=== PATIENT | male | born 1985 | race Hispanic/Latino ===

== ENCOUNTER 2021-07-02 19:14 | Emergency (ER) | payer SELFPAY ==
--- OUTSIDE RECORDS SUMMARY | 2021-07-02 19:16 | XMS REPORT | Continuity of Care Document ---
:1985 Author Organization [facility] t Address [address] [place] [address] Care Team Providers Name Role Phone DARREN Attending Clinician Unavailable KNOW Admitting Clinician Unavailable Payers Payer Name Policy Type Policy Number Effective Date Expiration Date S ource Problems This patient has no known problems. Allergies, Adverse Reactions, Alerts Allergy Allergy Status Severity Reaction(s) Onset Inactive Treating Comm ents Source Name Type Date Date Clinician No Known DA Active U [facility] Allergie 08-09 [facility] Medications This patient has no known medications. Procedures This patient has no known procedures. Encounters Start End Encounter Admission Attending Care Care Encounter Source Date/Time Date/Time Type Type Clinicians Facility Department ID 2019-07-15 [id number] 03:32:00 [id number] [facility] 2021-01-17 2021-01-17 [id number] [address] 00:00:00 00:00:00 ARELI Melgoza Method i st Results Test Description Test Time Test Comments Results Result Sour e Comments - CT C-SPINE W/O 2019-07-15 Name: ABIEL NICHOLSON CONT 04:19:00 Jostin Skaggs FSED : 1985 Age/S: 33 / M [address] Unit #: [id number] Loc: [place] [address] Phys: Heriberto Dickens MD Acct: [id number] Dis Date: Status: REG ER PHONE #: Exam Date: 07/15/2019 0408 FAX #: Reason: head trauma pain lac occipital EXAMS: CPT CODE: [id number] CT C-SPINE W/O CONT 93943 DICTATION LOCATION: H48 HISTORY: Male, 33 years of age with head trauma pain, occipital laceration EXAM: CT SCAN OF THE CERVICAL SPINE WITHOUT IV CONTRAST COMPARISON: None TECHNIQUE: Helical axial images were obtained without IV contrast. Axial, sagittal, and coronal reconstructions were performed. One or more of the following dose reduction techniques were used: Automated exposure control; adjustment of the mA and/or kV according to the patient size; and/or use of iterative reconstruction technique. FINDINGS: There is no acute fracture, posttraumatic subluxation or prevertebral soft tissue swelling. No significant central canal or foraminal stenosis. No focal disc herniations are identified. IMPRESSION: No acute fracture or subluxation in the cervical spine. at 0419 Reported and signed by: GER MARTINEZ M.D. CC: Heriberto Dickens MD Technologist:ALEC JACOBO RT (R) CTDI: 8.36 DLP: 194.18 Trnscb Date/Time: 07/15/2019 (0419) [email or web address] Orig Print D/T: S: 07/15/2019 (0422) PAGE 1 Signed Report - CT HEAD/BRAIN 2019-07-15 Name: ABIEL NICHOLSON W/O CONT 04:16:00 [place] FSED : 1985 Age/S: 33 / M [address] Unit #: [id number] Loc: [place] [address] Phys: Heriberto Dickens MD Acct: [id number] Dis Date: Status: REG ER PHONE #: Exam Date: 07/15/2019 0404 FAX #: Reason: head trauma pain lac occipital EXAMS: CPT CODE: [id number] CT HEAD/BRAIN W/O CONT [id number] DICTATION LOCATION: H48 HISTORY: Male, 33 years of age with head trauma, occipital laceration EXAM: CT BRAIN WITHOUT CONTRAST COMPARISON: 08/09/2014 TECHNIQUE: Helical axial images were obtained through the brain without IV contrast. Coronal and sagittal reformats were performed. One or more of the following dose reduction techniques were used: Automated exposure control; adjustment of the mA and/or kV according to the patient size; and/or use of iterative reconstruction technique. FINDINGS: Soft tissue swelling seen in the right parietal scalp. There is no acute intra-axial or extra-axial hemorrhage, mass, mass effect or midline shift. No acute loss of moe/white junctions. No hydrocephalus. There is no acute calvarial fracture. The sinuses and mastoids are clear. IMPRESSION: No acute calvarial fracture, intracranial hemorrhage, infarct, or mass. at 0416 Reported and signed by: GER MARTINEZ M.D. CC: Heriberto Dickens MD Technologist:ALEC JACOBO RT (R) CTDI: 35.51 DLP: 588.54 Trnscb Date/Time: 07/15/2019 (0416) [email or web address] Orig Print D/T: S: 07/15/2019 (0419) PAGE 1 Signed Report
[2021-07-02] MEDS ORDERED: LIDOCAINE 1% MPF 30 ML VIAL ONE (19:59)
--- NOTE | 2021-07-02 20:57 | ER ---
Nurse's Notes [facility] Name: Giles Underwood Age: 35 yrs Sex: Male : 1985 Arrival Date: 07/02/2021 Time: 19:17 Bed 25 Private MD: Diagnosis: Laceration without foreign body of right hand, initial encounter Presentation: 07/02 19:30 Chief complaint: Patient states: I was cooking dinner tonight with a [employer] kitchen ld1 knife. I dropped it on my right hand. Coronavirus screen: At this time, the client does not indicate any symptoms associated with coronavirus-19. Ebola Screen: No symptoms or risks identified at this time. Initial Sepsis Screen: Does the patient meet any 2 criteria? No. Patient's initial sepsis screen is negative. Does the patient have a suspected source of infection? No. Patient's initial sepsis screen is negative. Risk Assessment: Do you want to hurt yourself or someone else? Patient reports no desire to harm self or others. Onset of symptoms was July 02, 2021. 19:30 Method Of Arrival: Ambulatory ld1 19:30 Acuity: BRENDA 3 ld1 Triage Assessment: 19:31 General: Appears in no apparent distress. comfortable, Behavior is calm, cooperative, ld1 appropriate for age. Pain: Complains of pain in dorsal aspect of proximal phalanx of right thumb and Right first web space Pain does not radiate. Pain currently is 9 out of 10 on a pain scale. Quality of pain is described as stabbing, throbbing, Pain began suddenly, Is continuous. EENT: No signs and/or symptoms were reported regarding the EENT system. Musculoskeletal: No signs and/or symptoms reported regarding the musculoskeletal system. Injury Description: Laceration sustained to right hand. Historical: - Allergies: 19:31 No Known Allergies; ld1 - Home Meds: 19:31 Metoprolol Tartrate Oral [Active]; ld1 - PMHx: 19:31 Hypertensive disorder; ld1 - PSHx: 19:31 None; ld1 - Immunization history:: Adult Immunizations up to date, Client reports receiving the 2nd dose of the Covid vaccine, Last tetanus immunization: up to date. - Social history:: Smoking status: Patient reports the use of cigarette tobacco products, smokes one-half pack cigarettes per day, Patient/guardian denies using alcohol. - Family history:: not pertinent. - Hospitalizations: : No recent hospitalization is reported. Screenin:40 Abuse screen: none. Nutritional screening: No deficits noted. Tuberculosis screening: iw No symptoms or risk factors identified. Fall Risk None identified. Assessment: 19:40 Reassessment: The provider is at the bedside. The wound was examined. The patient's iw tetanus is up to date.. Vital Signs: 19:30 BP 175 / 122; Pulse 90; Resp 18; Temp 98.6(TE); Pulse Ox 97% on R/A; Weight 90.72 kg; ld1 Height 5 ft. 9 in. (175.26 cm); Pain 9/10; 19:45 BP 169 / 118; Pulse 91; Resp 18; Temp 98.4; Pulse Ox 100% 0 lpm ; Weight 95.25 kg; iw Height 5 ft. 6 in. (167.64 cm); Pain 3/10; 21:09 BP 110 / 80; Pulse 90; Resp 19; Pulse Ox 100% 0 lpm ; sv1 19:45 Body Mass Index 33.89 (95.25 kg, 167.64 cm) iw ED Course: 19:17 Patient arrived in ED. ja2 19:31 Triage completed. ld1 19:34 Jad Dykes MD is Attending Physician. rn 19:35 Janay Wood RN is Primary Nurse. iw 19:40 Patient has correct armband on for positive identification. Bed in low position. Call iw light in reach. Side rails up X 1. 19:45 Arm band placed on left wrist. iw 21:09 No provider procedures requiring assistance completed. Patient did not have IV access sv1 during this emergency room visit. Administered Medications: 20:02 Drug: Lidocaine (1 %) 1 vials Volume: 20 ml; Route: Infiltration; iw Outcome: 20:56 Discharge ordered by . rn 21:09 Discharged to home ambulatory, with family. sv1 21:09 Condition: good 21:09 Discharge instructions given to patient, family. 21:11 Patient left the ED. sv1 Signatures: Janay Wood, ANUSHA TAVARES iw Jad Dykes MD MD rn Dibbern, Lauren, RN RN ld1 Stella Sequeira [facility] Karthik Ascencio RN RN sv1
--- NOTE | 2021-07-02 20:57 | EDPHYS ---
Physician Documentation [facility] Name: Giles Underwood Age: 35 yrs Sex: Male : 1985 Arrival Date: 07/02/2021 Time: 19:17 Bed 25 Private MD: ED Physician Jad Dykes HPI: 07/02 20:37 This 35 yrs old Male presents to ER via Ambulatory with complaints of Hand rn laceration. 20:37 The patient or guardian reports a laceration, clean, 3 cm(s), simple. The complaints rn affect the right hand diffusely. Context: The problem was sustained at home, resulted from Knife. Onset: The symptoms/episode began/occurred just prior to arrival. Modifying factors: The symptoms are alleviated by nothing, the symptoms are aggravated by nothing. Severity of symptoms: At their worst the symptoms were mild, in the emergency department the symptoms are unchanged. The patient has not experienced similar symptoms in the past. The patient has not recently seen a physician. Patient reports doing dishes, dropped a sharp knife on his right hand, bleeding, EMS went out and wrapped the laceration and told him that he did not need transportation by EMS. Patient came on his own. Patient did take an aspirin earlier. No other anticoagulation. Reports wound is oozing.. Historical: - Allergies: 19:31 No Known Allergies; ld1 - Home Meds: 19:31 Metoprolol Tartrate Oral [Active]; ld1 - PMHx: 19:31 Hypertensive disorder; ld1 - PSHx: 19:31 None; ld1 - Immunization history:: Adult Immunizations up to date, Client reports receiving the 2nd dose of the Covid vaccine, Last tetanus immunization: up to date. - Social history:: Smoking status: Patient reports the use of cigarette tobacco products, smokes one-half pack cigarettes per day, Patient/guardian denies using alcohol. - Family history:: not pertinent. - Hospitalizations: : No recent hospitalization is reported. ROS: 20:37 Constitutional: Negative for fever, chills, and weight loss, MS/Extremity: Positive for rn laceration to the right hand with bleeding Skin: Positive for laceration Exam: 20:37 Constitutional: This is a well developed, well nourished patient who is awake, alert, rn appears anxious Skin: Warm, dry, no cyanosis MS/ Extremity: Pulses equal, no cyanosis. Neurovascular intact. Full, normal range of motion. 3 cm laceration to the dorsum of the right hand of the proximal first webspace closer to the base of the thumb. Central portion of the wound with small arteriolar bleeding. No foreign body. Vital Signs: 19:30 BP 175 / 122; Pulse 90; Resp 18; Temp 98.6(TE); Pulse Ox 97% on R/A; Weight 90.72 kg; ld1 Height 5 ft. 9 in. (175.26 cm); Pain 9/10; 19:45 BP 169 / 118; Pulse 91; Resp 18; Temp 98.4; Pulse Ox 100% 0 lpm ; Weight 95.25 kg; iw Height 5 ft. 6 in. (167.64 cm); Pain 3/10; 21:09 BP 110 / 80; Pulse 90; Resp 19; Pulse Ox 100% 0 lpm ; sv1 19:45 Body Mass Index 33.89 (95.25 kg, 167.64 cm) iw Laceration: 20:40 Wound Repair of 3cm ( 1.2in ) subcutaneous laceration to Right first web space. Distal rn neuro/vascular/tendon intact. Anesthesia: Wound infiltrated with 3 mls of 1% lidocaine. Wound prep: Moderate cleansing by me, Wound irrigation by me, Wound explored moderately. Subcutaneous tissue closed with 2 2-0 Chromic gut using [id number] sutures for arteriolar ligation. Skin closed with 3 4-0 Prolene using simple sutures. Dressed with 4x4's, Kerlix. Patient tolerated well. MDM: 19:34 Patient medically screened. rn 20:40 Differential diagnosis: Hand laceration, arteriolar bleeding. Data reviewed: vital rn signs, nurses notes, and as a result, I will discharge patient. ED course: Arteriolar bleeding stopped with 2 [id number] sutures. Tolerated well. Icing wound and observing patient. 20:54 Counseling: I had a detailed discussion with the patient and/or guardian regarding: the rn historical points, exam findings, and any diagnostic results supporting the discharge/admit diagnosis, the need for outpatient follow up, to return to the emergency department if symptoms worsen or persist or if there are any questions or concerns that arise at home. Response to treatment: the patient's symptoms have markedly improved after treatment, and as a result, I will discharge patient. ED course: Patient reports needs to leave by 9, continues to take ice off of wound despite us telling him to remain. Patient does not want to put pressure on the wound. Insists on leaving. Will discharge home and told to return in 14 days for suture removal. Explained to him the need for pressure and ice for tonight to minimize bleeding and given return precautions.. 07/02 19:40 Order name: Suture Tray at Bedside; Complete Time: 20: rn 07/02 19:40 Order name: Wound Care; Complete Time: 20: rn Administered Medications: 20: Drug: Lidocaine (1 %) 1 vials Volume: 20 ml; Route: Infiltration; iw Disposition Summary: 07/02/21 20:56 Discharge Ordered Location: Home rn Problem: new rn Symptoms: have improved rn Condition: Stable rn Diagnosis - Laceration without foreign body of right hand, initial encounter rn Followup: rn - With: Emergency Department - When: 14 days - Reason: Recheck today's complaints, Staple/Suture removal, Re-evaluation by your physician Discharge Instructions: - Discharge Summary Sheet rn - Laceration Care, Adult 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
[2021-07-02 21:21] VITALS: TEMP 98.4; O2SAT 100
[2021-07-02 21:23] VITALS: BP 110/80
== END 2021-07-02 21:11 | disposition home or self-care (01) ==
LOC: ER 19:14
PROC: 0JQJ0ZZ Repair Right Hand Subcutaneous Tissue and Fascia, Open Approach (ICD-10-PCS; principal; 2021-07-02)
DX: S61.411A Laceration without foreign body of right hand, initial encounter (principal); W26.0XXA Contact with knife, initial encounter; Y92.009 Unspecified place in unspecified non-institutional (private) residence as the place of occurrence of the external cause; I10 Essential (primary) hypertension; F17.210 Nicotine dependence, cigarettes, uncomplicated
CPT/HCPCS: 99283

== ENCOUNTER 2021-07-16 14:01 | Emergency (ER) | payer SELFPAY ==
--- OUTSIDE RECORDS SUMMARY | 2021-07-16 14:03 | XMS REPORT | Continuity of Care Document ---
:1985 Author Organization [facility] t Address [address] [place] [address] Care Team Providers Name Role Phone DARREN Attending Clinician Unavailable KNOW Admitting Clinician Unavailable Payers Payer Name Policy Type Policy Number Effective Date Expiration Date S ource Problems This patient has no known problems. Allergies, Adverse Reactions, Alerts Allergy Allergy Status Severity Reaction(s) Onset Inactive Treating Comm ents Source Name Type Date Date Clinician No Known DA Active U [facility] Allergie 08-09 [facility] 00:00: [facility] Medications This patient has no known medications. Procedures This patient has no known procedures. Encounters Start End Encounter Admission Attending Care Care Encounter Source Date/Time Date/Time Type Type Clinicians Facility Department ID 2019-07-15 Inpatient [facility] ER [id number] [facility] 03:32:00 [id number] [facility] 2021-01-17 2021-01-17 [facility] [id number] [address] [place] 00:00:00 00:00:00 ARELI Melgoza Method i st Results Test Description Test Time Test Comments Results Result [facility] e Comments - CT C-SPINE W/O 2019-07-15 Name: ABIEL NICHOLSON CONT 04:19:00 Jostin Skaggs FSED : 1985 Age/S: 33 / M [address] Unit #: [id number] Loc: [place] [address] Phys: Heriberto Dickens MD Acct: [id number] Dis Date: Status: REG ER PHONE #: Exam Date: 07/15/2019 0408 FAX #: Reason: head trauma pain lac occipital EXAMS: CPT CODE: [id number] CT C-SPINE W/O CONT 72657 DICTATION LOCATION: H48 HISTORY: Male, 33 years [...] 8.36 DLP: 194.18 Trnscb Date/Time: 07/15/2019 (0419) [email or web address] Orig Print D/T: S: 07/15/2019 (0422) PAGE 1 Signed Report - CT HEAD/BRAIN 2019-07-15 Name: ABIEL NICHOLSON W/O CONT 04:16:00 [place] FSED : 1985 Age/S: 33 / M [address] Unit #: [id number] Loc: [place] [address] Phys: Heriberto Dickens MD Acct: [id number] Dis Date: Status: REG ER PHONE #: Exam Date: 07/15/2019 0407 FAX #: Reason: head trauma pain lac occipital EXAMS: CPT CODE: [id number] CT HEAD/BRAIN W/O CONT 66761 DICTATION LOCATION: H48 HISTORY: Male, 33 years [...] JACOBO RT (R) CTDI: 35.51 DLP: 588.54 Trnilb Date/Time: 07/15/2019 (0416) t.CLW Orig Print D/T: S: 07/15/2019 (0419) PAGE 1 Signed Report
--- NOTE | 2021-07-16 14:26 | EDPHYS ---
Physician Documentation [facility] Name: Giles Moses Jr Age: 35 yrs Sex: Male : 1985 Arrival Date: 07/16/2021 Time: 14:03 Bed DIS1 Private MD: ED Physician Jad Dykes HPI: 07/16 14:24 This 35 yrs old Male presents to ER via Unassigned with complaints of Suture pm1 Removal. 14:24 The patient has sutures on the lateral aspect of right hand. Previous treatment: the pm1 care was rendered at [facility], Treatment type: The patient's original treatment included sutures. Sutures/marta progress: The patient has no c/o's. The wound is well-healing with no redness, swelling, discharge, or dehiscence reported. The patient has not experienced similar symptoms in the past. The patient has not recently seen a physician. Historical: - PMHx: 14:31 Hypertensive disorder; ss - Immunization history:: Adult Immunizations up to date. - Social history:: Smoking status: Patient denies any tobacco usage or history of. ROS: 14:24 Constitutional: Negative for fever, chills, and weight loss, Cardiovascular: Negative pm1 for chest pain, palpitations, and edema, Respiratory: Negative for shortness of breath, cough, wheezing, and pleuritic chest pain, MS/Extremity: Negative for injury and deformity, Skin: Negative for injury, rash, and discoloration, Neuro: Negative for headache, weakness, numbness, tingling, and seizure. 14:24 All other systems are negative. Exam: 14:24 Constitutional: This is a well developed, well nourished patient who is awake, alert, pm1 and in no acute distress. Head/Face: Normocephalic, atraumatic. 14:24 Cardiovascular: Exam negative for acute changes, Rate: normal, Rhythm: regular, Pulses: no pulse deficits are appreciated. 14:24 Respiratory: Exam negative for acute changes, respiratory distress, shortness of breath. 14:24 Skin: Wound recheck: Suture laceration closure: the wound is healing well, the edges are well approximated, no evidence of dehiscence, no drainage, no erythema, no swelling. 14:24 Neuro: Exam negative for acute changes, Orientation: is normal, Mentation: is normal, Motor: moves all fours, Gait: is steady, at a normal pace, without difficulty. Vital Signs: 14:29 BP 123 / 71; Pulse 80; Resp 16; Temp 98.4(TE); Pulse Ox 100% on R/A; Pain 0/10; ss MDM: 14:25 Patient medically screened. pm1 14:27 Counseling: I had a detailed discussion with the patient and/or guardian regarding: the pm1 historical points, exam findings, and any diagnostic results supporting the discharge/admit diagnosis, the need for outpatient follow up, to return to the emergency department if symptoms worsen or persist or if there are any questions or concerns that arise at home. 14:31 Data reviewed: vital signs. Data interpreted: Pulse oximetry: on room air is 100 %. pm1 Interpretation: normal. Administered Medications: No medications were administered Disposition: 15:37 Co-signature as Attending Physician, Jad Dykes MD I agree with the assessment and rn plan of care. Disposition Summary: 07/16/21 14:25 Discharge Ordered Location: Home pm1 Problem: new pm1 Symptoms: have improved pm1 Condition: Stable pm1 Diagnosis - Encounter for removal of sutures pm1 Followup: pm1 - With: Emergency Department - When: As needed - Reason: Worsening of condition Followup: pm1 - With: Private Physician - When: As needed - Reason: Recheck today's complaints, Continuance of care, Re-evaluation by your physician Discharge Instructions: - Discharge Summary Sheet pm1 - Suture Removal, Care After pm1 Forms: - Medication Reconciliation Form pm1 - Thank You Letter pm1 - Antibiotic Education pm1 - Prescription Opioid Use pm1 Signatures: Jad Dykes MD MD rn Smirch, Shelby, RN RN Vernon Li, TU CARDIAC NURSE PRACTITIONER pm1
--- NOTE | 2021-07-16 14:32 | ER ---
Nurse's Notes [facility] Name: Giles Moses Jr Age: 35 yrs Sex: Male : 1985 Arrival Date: 07/16/2021 Time: 14:03 Bed DIS1 Private MD: Diagnosis: Encounter for removal of sutures Presentation: 07/16 14:29 Chief complaint: Patient states: Here to have sutures removed from R hand. Placed ss approximately 2 weeks ago. Coronavirus screen: Client denies travel out of the [place] in the last 14 days. Ebola Screen: Patient denies exposure to infectious person. Patient denies travel to an Ebola-affected area in the 21 days before illness onset. Initial Sepsis Screen: Does the patient meet any 2 criteria? No. Patient's initial sepsis screen is negative. Does the patient have a suspected source of infection? No. Patient's initial sepsis screen is negative. Risk Assessment: Do you want to hurt yourself or someone else? Patient reports no desire to harm self or others. Onset of symptoms is unknown. 14:29 Method Of Arrival: Ambulatory ss 14:29 Acuity: BRENDA 5 ss Historical: - PMHx: 14:31 Hypertensive disorder; ss - Immunization history:: Adult Immunizations up to date. - Social history:: Smoking status: Patient denies any tobacco usage or history of. Screenin:31 Abuse screen: Denies threats or abuse. Denies injuries from another. Nutritional ss screening: No deficits noted. Tuberculosis screening: Never had TB. Fall Risk None identified. Assessment: 14:31 General: Appears in no apparent distress. comfortable, Behavior is calm, cooperative. ss Pain: Denies pain. Vital Signs: 14:29 BP 123 / 71; Pulse 80; Resp 16; Temp 98.4(TE); Pulse Ox 100% on R/A; Pain 0/10; ss ED Course: 14:03 Patient arrived in ED. ds1 14:21 Vernon Rubi NP is PHCP. pm1 14:21 Jad Dykes MD is Attending Physician. pm1 14:29 India Camargo RN is Primary Nurse. ss 14:30 Triage completed. ss 14:31 Arm band placed on right wrist. ss 14:31 Patient has correct armband on for positive identification. Bed in low position. Call ss light in reach. 14:31 No provider procedures requiring assistance completed. Patient did not have IV access ss during this emergency room visit. Administered Medications: No medications were administered Outcome: 14:25 Discharge ordered by MD. pm1 14:31 Discharged to home ambulatory. ss 14:31 Condition: good 14:31 Discharge instructions given to patient, Instructed on discharge instructions, follow up and referral plans. Demonstrated understanding of instructions, follow-up care. 14:32 Patient left the ED. Signatures: Nicole England ds1 India Camargo RN RN Vernon Rubi, TU SUPERVISOR POWDER AND [employer]ER CANNING pm1
[2021-07-16 14:49] VITALS: BP 123/71; TEMP 98.4; O2SAT 100
== END 2021-07-16 14:32 | disposition home or self-care (01) ==
LOC: ER 14:01
DX: Z48.02 Encounter for removal of sutures (principal)
CPT/HCPCS: 99281

== ENCOUNTER 2022-03-13 03:48 | Emergency (ER) | payer SELFPAY ==
--- OUTSIDE RECORDS SUMMARY | 2022-03-13 04:06 | XMS REPORT | Continuity of Care Document ---
:1985 Author Organization [facility] t Address [address] [place] [address] Care Team Providers Name Role Phone Asked, No Pcp Primary Care Physician Unavailable ARELI BANKS Attending Clinician Unavailable KNOW, DOES_NOT Admitting Clinician Unavailable Payers Payer Name Policy Type Policy Number Effective Date Expiration Date S ource Problems This patient has no known problems. Allergies, Adverse Reactions, Alerts Allergy Allergy Status Severity Reaction(s) Onset Inactive Treating Comm ents Source Name Type Date Date Clinician No Known DA Active U [facility] Allergie 08-09 [facility] Social History Social Habit Start Date Stop Date Quantity Comments Source History of Smokes tobacco [facility] tobacco use daily Hospital Tobacco use and 2021-01-17 2021-01-17 Smokeless tobacco [facility] exposure 00:00:00 00:00:00 non-user Hospital Alcohol intake 2021-01-17 2021-01-17 Current drinker [facility] 00:00:00 00:00:00 of alcohol Hospital (finding) Sex Assigned At [birth year] [facility] 00:00:00 00:00:00 Hospital Smoking Status Start Date Stop Date Source Smokes tobacco daily 2021-01-17 00:00:00 [facility] Medications Ordered Filled Start Stop Current Ordering Indication Dosage Frequency Signature Comments Components Source Medication Medication Date Date Medication? Clinician (SIG) Name Name omeprazole Yes 20mg QD Take 1 Metho di (PriLOSEC) 01-[address] 20 MG 00:00: (20 mg Hospita capsule 00 total) by l mouth daily before breakfast. Procedures This patient has no known procedures. Plan of Care Planned Activity Planned Date Details Comments Source Future Scheduled 2022-03-01 COVID-19 VACCINE (#1) [facility] Test 10:36:38 [code = COVID-19 VACCINE (#1)] Future Scheduled 2022-03-01 Pneumococcal Vaccine: [facility] Test 10:36:38 Pediatrics (0 to 5 Years) and At-Risk Patients (6 to 64 Years) (1 - PCV) [code = Pneumococcal Vaccine: Pediatrics (0 to 5 Years) and At-Risk Patients (6 to 64 Years) (1 - PCV)] Future Scheduled 2022-03-01 Hepatitis C screening [facility] Test 10:36:38 (procedure) [code = [id number]] Future Scheduled 2022-03-01 INFLUENZA VACCINE [facility] Test 10:36:38 [code = INFLUENZA VACCINE] Future Scheduled 2022-03-01 HEPATITIS B VACCINES [facility] Test 10:36:38 (1 of 3 - 3-dose series) [code = HEPATITIS B VACCINES (1 of 3 - 3-dose series)] Encounters Start End Encounter Admission Attending Care Care Encounter Source Date/Time Date/Time Type Type Clinicians Facility Department ID 2019-07-15 Inpatient [facility] ER [id number] [facility] 03:32:00 [id number] [facility] 2021-01-17 2021-01-17 Emergency ANADARKO, [facility] 374 [id number] [address] [place] 00:00:00 00:00:00 ARELI Melgoza Method i st Results Test Description Test Time Test Comments Results Result [facility] e Comments - CT C-SPINE W/O 2019-07-15 Name: ABIEL NICHOLSON CONT 04:19:00 [place] FSED : 1985 Age/S: 33 / M [address] Unit #: [id number] Loc: [place] [address] Phys: Heriberto Dickens MD Acct: [id number] Dis Date: Status: REG ER PHONE #: Exam Date: 07/15/2019 0402 FAX #: Reason: head trauma pain lac occipital EXAMS: CPT CODE: [id number] CT C-SPINE W/O CONT 11797 DICTATION LOCATION: H48 HISTORY: Male, 33 years [...] 2019-07-15 Name: ABIEL NICHOLSON W/O CONT 04:16:00 [place] FSED : 1985 Age/S: 33 / M [address] Unit #: [id number] Loc: [place] [address] Phys: Heriberto Dickens MD Acct: [id number] Dis Date: Status: REG ER PHONE #: Exam Date: 07/15/2019 9573 FAX #: Reason: head trauma pain lac occipital EXAMS: CPT CODE: [id number] CT HEAD/BRAIN W/O CONT 37943 DICTATION LOCATION: H48 HISTORY: Male, 33 years [...] (0416) tKERI Orig Print D/T: S: 07/15/2019 (0414) PAGE 1 Signed Report
[2022-03-13 04:35] LABS: Urine Blood Trace-lysed (Negative); Urine Glucose Negative (Negative); Urine Protein Negative (Negative); Urine Specific Gravity >=1.030 (1.005-1.030); Urine pH 5.5 (5.0-7.0)
[2022-03-13 04:35] LABS: Absolute Lymphocytes (CBC) 2.1 K/uL (0.7-4.9); Hematocrit 42.2 % (39.6-49.0); Lymphocytes % 14.7 % (15.3-44.8); MCV 81.5 fL (80-100); MPV 8.4 fL (7.6-11.3); RBC Red Blood Cell Count 5.18 M/uL (4.33-5.43)
[2022-03-13 04:53] LABS: Albumin 3.8 g/dL (3.4-5.0); Bilirubin Total 0.9 mg/dL (0.2-1.0); Potassium 3.7 mmol/L (3.5-5.1); Protein, Total 7.9 g/dL (6.4-8.2)
[2022-03-13] MEDS ORDERED: Ciprofloxacin 200mg IV 200 MG/100 ML IV.SOLN. IV ONE (05:16)
[2022-03-13] MEDS ORDERED: MORPHINE 4 MG/ML SYR ONE (05:16)
[2022-03-13] MEDS ORDERED: NA CHLORIDE 0.9% 1,000 ML ONE (05:16)
[2022-03-13] MEDS ORDERED: CEFTRIAXONE 2000 MG/VIAL ONE (05:16)
[2022-03-13] MEDS ORDERED: METRONIDAZOLE 500mg IVPB 500 MG/100 ML BAG IV ONE (05:16)
[2022-03-13] MEDS ORDERED: NA CHLORIDE 0.9% 50 ML ONE (05:16)
[2022-03-13] MEDS ORDERED: ONDANSETRON 4 MG/2 ML VIAL ONE (05:16)
--- NOTE | 2022-03-13 07:10 | ER ---
Nurse's Notes [facility] Name: Giles Moses Jr Age: 36 yrs Sex: Male : 1985 Arrival Date: 03/13/2022 Time: 03:52 Bed 26 Private MD: Diagnosis: Abdominal tenderness;Elevated white blood cell count;Diverticulitis of large intestine without perforation or abscess without bleeding;Essential (primary) hypertension Presentation: 03/13 03:55 Chief complaint: Patient states: "I have been up to the restroom ever 30 min. I feel tw5 like I need to go to the restroom but I cannot go. It feels like pressure in my stomach.". Coronavirus screen: Vaccine status: Patient reports receiving the 2nd dose of the covid vaccine. J and J one shot. Ebola Screen: Patient negative for fever greater than or equal to 101.5 degrees Fahrenheit, and additional compatible Ebola Virus Disease symptoms Patient denies exposure to infectious person. Patient denies travel to an Ebola-affected area in the 21 days before illness onset. Initial Sepsis Screen: Does the patient meet any 2 criteria? HR > 90 bpm. Does the patient have a suspected source of infection? Yes: Acute abdominal pain. Risk Assessment: Do you want to hurt yourself or someone else? Patient reports no desire to harm self or others. Onset of symptoms was March 12, 2022. 03:55 Method Of Arrival: Ambulatory tw5 03:55 Acuity: BRENDA 3 tw5 Triage Assessment: 03:58 General: Appears uncomfortable, Behavior is calm, cooperative, appropriate for age. tw5 Pain: Complains of pain in right lower quadrant and left lower quadrant Pain currently is 9 out of 10 on a pain scale. GI: Reports constipation. Historical: - Allergies: 03:58 No Known Allergies; tw5 - Home Meds: 03:58 metoprolol tartrate 50 mg Oral tab 1 tab 2 times per day [Active]; tw5 - PMHx: 03:58 Hypertensive disorder; tw5 - Immunization history:: Flu vaccine is not up to date. - Social history:: Smoking status: Patient reports the use of cigarette tobacco products, denies chronic smoking, but will smoke occasionally. Screenin:45 Abuse screen: Denies threats or abuse. Denies injuries from another. Nutritional as6 screening: No deficits noted. Tuberculosis screening: No symptoms or risk factors identified. Fall Risk None identified. Assessment: 04:00 General: Appears in no apparent distress. Behavior is calm, cooperative. Pain: as6 Complains of pain in left upper quadrant and abdomen and left lower quadrant and right lower quadrant. Neuro: Level of Consciousness is awake, alert. Respiratory: Respiratory effort is even, unlabored. GI: Reports lower abdominal pain, constipation, nausea. 05:45 Reassessment: Patient states symptoms have improved. as6 07:17 Reassessment: Patient appears in no apparent distress at this time. Patient and/or ph family updated on plan of care and expected duration. Pain level reassessed. Patient is alert, oriented x 3, equal unlabored respirations, skin warm/dry/pink. Pt ambulatory to restroom. 07:35 Reassessment: D/C pending completion of IV antibiotics. ph Vital Signs: 03:55 BP 169 / 113; Pulse 100; Resp 18; Temp 98.4(O); Pulse Ox 99% ; Weight 90.72 kg; Height tw5 5 ft. 6 in. (167.64 cm); Pain 9/10; 05:43 BP 153 / 109; Pulse 98; Resp 18 S; Pulse Ox 99% on R/A; as6 07:35 BP 148 / 101; Pulse 89; Resp 18; Pulse Ox 98% on R/A; ph 08:05 Temp 97.9; ph 03:55 Body Mass Index 32.28 (90.72 kg, 167.64 cm) tw5 ED Course: 03:52 Patient arrived in ED. ja2 03:58 Triage completed. tw5 03:58 Arm band placed on left wrist. tw5 04:00 Elroy Cedeno MD is Attending Physician. daja 04:00 Jose Miguel Keita, ANUSHA is Primary Nurse. as6 04:25 Inserted saline lock: 20 gauge in right antecubital area, using aseptic technique. as6 Blood collected. 04:31 CBC with Diff Sent. as6 04:31 CMP Sent. as6 04:31 Lipase Sent. as6 05:41 CT Abd/Pelvis - IV Contrast Only In Process Unspecified. EDMS 05:45 Bed in low position. Call light in reach. as6 07:09 Kendell Hidalgo MD is Referral Physician. daja 07:53 Primary Nurse role handed off by Jose Miguel Keita RN eb 07:55 Melanie Osei, RN is Primary Nurse. ph 08:06 No provider procedures requiring assistance completed. IV discontinued, intact, ph bleeding controlled, No redness/swelling at site. Pressure dressing applied. Administered Medications: 04:31 Drug: NS 0.9% 1000 ml Route: IV; Rate: 1 bolus; Site: right antecubital; as6 05:19 Drug: Rocephin (cefTRIAXone) 2 grams Route: IV; Rate: per protocol; Site: right as6 antecubital; 05:19 Drug: morphine 4 mg Route: IVP; Infused Over: 4 mins; Site: right antecubital; as6 05:20 Drug: Zofran (Ondansetron) 4 mg Route: IVP; Site: right antecubital; as6 05:43 Drug: Flagyl (metroNIDAZOLE) 500 mg Volume: 100 ml; Route: IVPB; Rate: 200 ml/hr; as6 Infused Over: 30 mins; Site: right antecubital; 05:43 Drug: NS 0.9% 1000 ml Route: IV; Rate: 1 bolus; Site: right antecubital; as6 07:18 Follow up: Response: No adverse reaction; IV Status: Completed infusion; IV Intake: ph 1000ml 06:11 Drug: Cipro (ciprofloxacin) 400 mg Volume: 200 ml; Route: IVPB; Infused Over: 60 mins; as6 Site: right antecubital; 07:18 Follow up: Response: No adverse reaction; IV Status: Completed infusion ph 08:05 Drug: Norvasc (amlodipine) 10 mg Route: PO; ph 08:05 Follow up: Response: No adverse reaction; Medication administered at discharge. ph 08:05 Drug: Bentyl (dicyclomine) 20 mg Route: PO; ph 08:05 Follow up: Response: No adverse reaction; Medication administered at discharge. ph Medication: 08:06 VIS not applicable for this client. ph Intake: 07:18 IV: 1000ml; Total: 1000ml. ph Outcome: 07:09 Discharge ordered by MD. farnsworth 08:06 Discharged to home ambulatory. ph 08:06 Condition: good 08:06 Discharge instructions given to patient, Instructed on discharge instructions, follow up and referral plans. medication usage, Demonstrated understanding of instructions, follow-up care, medications, Prescriptions given X 6 08:06 Patient left the ED. ph Signatures: Dispatcher [employer] EDElroy Weeks MD MD cha Hall, Patricia RN RN Gena Rice Jessica ja2 Wood, Tiffany tw5 Jose Miguel Keita RN RN as6
--- NOTE | 2022-03-13 07:10 | EDPHYS ---
Physician Documentation [facility] Name: Giles Moses Jr Age: 36 yrs Sex: Male : 1985 Arrival Date: 03/13/2022 Time: 03:52 Bed 26 Private MD: ED Physician Elroy Cedeno HPI: 03/13 04:59 This 36 yrs old Male presents to ER via Ambulatory with complaints of daja Abdominal Pain, Fever. 04:59 The patient reports fever, that was measured at 98 degrees Fahrenheit. Onset: The daja symptoms/episode began/occurred 1 day(s) ago. Modifying factors: there are no obvious modifying factors. Associated signs and symptoms: Pertinent positives: abdominal pain. Severity of symptoms: At their worst the symptoms were moderate in the emergency department the symptoms are unchanged. The patient has not experienced similar symptoms in the past. Historical: - Allergies: 03:58 No Known Allergies; tw5 - Home Meds: 03:58 metoprolol tartrate 50 mg Oral tab 1 tab 2 times per day [Active]; tw5 - PMHx: 03:58 Hypertensive disorder; tw5 - Immunization history:: Flu vaccine is not up to date. - Social history:: Smoking status: Patient reports the use of cigarette tobacco products, denies chronic smoking, but will smoke occasionally. ROS: 05:00 Constitutional: Negative for fever, chills, and weight loss, Eyes: Negative for injury, daja pain, redness, and discharge, ENT: Negative for injury, pain, and discharge, Neck: Negative for injury, pain, and swelling, Cardiovascular: Negative for chest pain, palpitations, and edema, Respiratory: Negative for shortness of breath, cough, wheezing, and pleuritic chest pain, Back: Negative for injury and pain, : Negative for injury, bleeding, discharge, and swelling, MS/Extremity: Negative for injury and deformity, Skin: Negative for injury, rash, and discoloration, Neuro: Negative for headache, weakness, numbness, tingling, and seizure, Psych: Negative for depression, anxiety, suicide ideation, homicidal ideation, and hallucinations, Allergy/Immunology: Negative for hives, rash, and allergies, Endocrine: Negative for neck swelling, polydipsia, polyuria, polyphagia, and marked weight changes, Hematologic/Lymphatic: Negative for swollen nodes, abnormal bleeding, and unusual bruising. 05:00 Abdomen/GI: Positive for abdominal pain, constipation, abdominal cramps, abdominal distension, of the left upper quadrant and left lower quadrant. Exam: 05:00 Constitutional: This is a well developed, well nourished patient who is awake, alert, daja and in no acute distress. Head/Face: Normocephalic, atraumatic. Eyes: Pupils equal round and reactive to light, extra-ocular motions intact. Lids and lashes normal. Conjunctiva and sclera are non-icteric and not injected. Cornea within normal limits. Periorbital areas with no swelling, redness, or edema. ENT: Nares patent. No nasal discharge, no septal abnormalities noted. Tympanic membranes are normal and external auditory canals are clear. Oropharynx with no redness, swelling, or masses, exudates, or evidence of obstruction, uvula midline. Mucous membranes moist. Neck: Trachea midline, no thyromegaly or masses palpated, and no cervical lymphadenopathy. Supple, full range of motion without nuchal rigidity, or vertebral point tenderness. No Meningismus. Chest/axilla: Normal chest wall appearance and motion. Nontender with no deformity. No lesions are appreciated. Cardiovascular: Regular rate and rhythm with a normal S1 and S2. No gallops, murmurs, or rubs. Normal PMI, no JVD. No pulse deficits. Respiratory: Lungs have equal breath sounds bilaterally, clear to auscultation and percussion. No rales, rhonchi or wheezes noted. No increased work of breathing, no retractions or nasal flaring. Back: No spinal tenderness. No costovertebral tenderness. Full range of motion. Skin: Warm, dry with normal turgor. Normal color with no rashes, no lesions, and no evidence of cellulitis. MS/ Extremity: Pulses equal, no cyanosis. Neurovascular intact. Full, normal range of motion. Neuro: Awake and alert, GCS 15, oriented to person, place, time, and situation. Cranial nerves II-XII grossly intact. Motor strength 5/5 in all extremities. Sensory grossly intact. Cerebellar exam normal. Normal gait. Psych: Awake, alert, with orientation to person, place and time. Behavior, mood, and affect are within normal limits. 05:00 Abdomen/GI: Inspection: distension, that is mild, Bowel sounds: normal, active, Palpation: mild abdominal tenderness, in the left upper quadrant and left lower quadrant, Liver: no appreciated palpable abnormalities, Hernia: not appreciated. Vital Signs: 03:55 BP 169 / 113; Pulse 100; Resp 18; Temp 98.4(O); Pulse Ox 99% ; Weight 90.72 kg; Height tw5 5 ft. 6 in. (167.64 cm); Pain 9/10; 05:43 BP 153 / 109; Pulse 98; Resp 18 S; Pulse Ox 99% on R/A; as6 07:35 BP 148 / 101; Pulse 89; Resp 18; Pulse Ox 98% on R/A; ph 08:05 Temp 97.9; ph 03:55 Body Mass Index 32.28 (90.72 kg, 167.64 cm) tw5 MDM: 04:19 Patient medically screened. [facility] 05:02 Data reviewed: vital signs, nurses notes, lab test result(s), radiologic studies, CT daja scan. Data interpreted: electronic device monitor: rate is 100 beats/min, rhythm is regular, Pulse oximetry: on room air is 99 %. Counseling: I had a detailed discussion with the patient and/or guardian regarding: the historical points, exam findings, and any diagnostic results supporting the discharge/admit diagnosis, lab results, radiology results, the need for outpatient follow up, for definitive care, a family practitioner, a general surgeon. 03/13 04:03 Order name: CBC with Diff; Complete Time: 04:55 as03/13 04:03 Order name: CMP; Complete Time: 04:55 03/13 04:03 Order name: Lipase; Complete Time: 04:55 03/13 04:35 Order name: Urine Dipstick-Ancillary; Complete Time: 04:55 EDMS 03/13 04:59 Order name: CT Abd/Pelvis - IV Contrast Only [facility] 03/13 04:03 Order name: IV Saline Lock; Complete Time: 04:31 as6 03/13 04:03 Order name: Labs collected and sent; Complete Time: 04:31 as03/13 04:03 Order name: Urine Dipstick-Ancillary (obtain specimen); Complete Time: 04:31 6 Administered Medications: 04:31 Drug: NS 0.9% 1000 ml Route: IV; Rate: 1 bolus; Site: right antecubital; as6 05:19 Drug: Rocephin (cefTRIAXone) 2 grams Route: IV; Rate: per protocol; Site: right as6 antecubital; 05:19 Drug: morphine 4 mg Route: IVP; Infused Over: 4 mins; Site: right antecubital; as6 05:20 Drug: Zofran (Ondansetron) 4 mg Route: IVP; Site: right antecubital; as6 05:43 Drug: Flagyl (metroNIDAZOLE) 500 mg Volume: 100 ml; Route: IVPB; Rate: 200 ml/hr; as6 Infused Over: 30 mins; Site: right antecubital; 05:43 Drug: NS 0.9% 1000 ml Route: IV; Rate: 1 bolus; Site: right antecubital; as6 07:18 Follow up: Response: No adverse reaction; IV Status: Completed infusion; IV Intake: ph 1000ml 06:11 Drug: Cipro (ciprofloxacin) 400 mg Volume: 200 ml; Route: IVPB; Infused Over: 60 mins; as6 Site: right antecubital; 07:18 Follow up: Response: No adverse reaction; IV Status: Completed infusion ph 08:05 Drug: Norvasc (amlodipine) 10 mg Route: PO; ph 08:05 Follow up: Response: No adverse reaction; Medication administered at discharge. ph 08:05 Drug: Bentyl (dicyclomine) 20 mg Route: PO; ph 08:05 Follow up: Response: No adverse reaction; Medication administered at discharge. ph Disposition Summary: 03/13/22 07:09 Discharge Ordered Location: Home daja Problem: new daja Symptoms: have improved daja Condition: Stable daja Diagnosis - Abdominal tenderness daja - Elevated white blood cell count daja - Diverticulitis of large intestine without perforation or abscess without bleeding daja - Essential (primary) hypertension daja Followup: daja - With: Private Physician - When: 2 - 3 days - Reason: Recheck today's complaints, Continuance of care, Re-evaluation by your physician Followup: daja - With: - When: 2 - 3 days - Reason: Recheck today's complaints, Continuance of care, Re-evaluation by your physician Discharge Instructions: - Discharge Summary Sheet daja - Abdominal Pain, Adult daja - Diverticulitis daja - Diverticulitis, [id number] daja - Abdominal Pain, Adult, Owek-[id number]-Dwig daja - Hypertension, Adult daja - Hypertension, Adult, Eznu-ac-Tavg daja - How to Take Your Blood Pressure, Vcza-[id number] daja - Managing Your Hypertension daja Forms: - Medication Reconciliation Form daja - Thank You Letter daja - Antibiotic Education daja - Prescription Opioid Use [facility] - Work release form Prescriptions: - Flagyl 500 mg Oral Tablet - take 1 tablet by ORAL route every 6 hours for 10 days; 40 tablet; Refills: 0, [facility] Product Selection Permitted - Zofran 4 mg Oral Tablet - take 1 tablet by ORAL route every 12 hours As needed; 20 tablet; Refills: 0, [facility] Product Selection Permitted - Lopressor 50 mg Oral Tablet - take 1 tablet by ORAL route every 12 hours; 40 tablet; Refills: 0, Product daja Selection Permitted - Norvasc 5 mg Oral Tablet - take 1 tablet by ORAL route once daily; 20 tablet; Refills: 0, Product daja Selection Permitted - Cipro 500 mg Oral Tablet - take 1 tablet by ORAL route every 12 hours for 10 days; 20 tablet; Refills: 0, [facility] Product Selection Permitted - dicyclomine 20 mg Oral Tablet - take 1 tablet by ORAL route 4 times per day; 28 tablet; Refills: 0, Product daja Selection Permitted Signatures: Dispatcher [employer] Elroy Morris MD MD cha Attema, Lee, CASHIER AND SALESPERSON-C CASHIER AND SALESPERSON-Cla1 Melanie Osei, RN RN Fauzia Burns tw5 Jose Miguel Keita RN RN as6
[2022-03-13] MEDS ORDERED: AMLODIPINE 10 MG TAB ONE (07:38)
[2022-03-13] MEDS ORDERED: DICYCLOMINE HCL 10 MG CAP ONE (08:06)
[2022-03-13 08:19] VITALS: BP 148/101; O2SAT 98
[2022-03-13 08:22] VITALS: TEMP 97.9
--- NOTE | 2022-03-13 15:35 | RAD REPORT ---
EXAM DESCRIPTION: CT - Abdomen Pelvis W Contrast - 03/13/2022 6:28 am CLINICAL HISTORY: 36 years Male LLQ abdominal pain TECHNIQUE: Axial CT imaging of the abdomen and pelvis was performed following the administration of intravenous contrast.. Oral contrast was not administered. Sagittal and coronal reconstructed image s were then performed. The CT study is performed according to ALARA (as low as reasonably achievabl e) or ALARA/IMAGE GENTLY, with automatic adjustment of mA and/or kV according to patient size. Performed on: 03/13/2022 at 5:37 AM. COMPARISON: None FINDINGS: Lung bases: Lung bases are clear. Liver: The liver is normal in size and configuration. No focal hepatic abnormalities are identified. Liver attenuation is within normal limits. The hepatic and portal veins are patent. Spleen: The spleen is normal is size, configuration and attenuation. Gallbladder and bile duct: The gallbladder is well distended and unremarkable. There is no biliary ductal dilatation. Pancreas: The pancreas is grossly normal in size and configuration. Adrenal Glands: The adrenal glands are normal in size and configuration. Kidneys: The kidneys are normal in size and configuration. There is no evidence of hydronephrosis. Th ere is no evidence of nephrolithiasis. No definite solid or cystic renal mass lesions are identified. Stomach: The stomach is grossly normal. There is no definite hiatal hernia. Bowel: The bowel gas pattern is non specific and non obstructive. There is occasional colonic diverti culosis. There is colonic wall thickening and pericolonic inflammation surrounding the sigmoid portio n of the colon which may be due to colitis or diverticulitis. There is no evidence of a peridiverticu lar abscess or perforation. Appendix: The appendix is normal. Free air: There is no evidence of free air. Free fluid: There is no evidence of free fluid. Vasculature: The aorta is normal in caliber and contour. The inferior vena cava is grossly unremarkab le. Lymphadenopathy: No pathologic lymphadenopathy is identified. Bladder: The bladder is partially distended and smooth in contour. Reproductive: The prostate gland is grossly within normal limits. There are a few chronic coarse calc ifications within the prostate gland. Bones: No acute osseous abnormalities are identified. Soft tissues: No acute soft tissue abnormalities are identified. There is a small fat-containing vent ral umbilical hernia. IMPRESSION: 1. Occasional colonic diverticulosis with colonic wall thickening and pericolonic infl ammation surrounding the sigmoid portion of the colon which may be due to colitis or diverticulitis. There is no evidence of a peridiverticular abscess or perforation. 2. Small fat-containing ventral umbilical hernia. Electronically signed by: Philly Rebollar DO 03/13/2022 6:04 AM CDT Due to temporary technical issues with the PACS/Fluency reporting system, reports are being signed by the in house radiologists without review as a courtesy to insure prompt reporting. The interpreting radiologist is fully responsible for the content of the report.
== END 2022-03-13 08:06 | disposition home or self-care (01) ==
LOC: ER 03:48
DX: R10.819 Abdominal tenderness, unspecified site (principal); K57.32 Diverticulitis of large intestine without perforation or abscess without bleeding; D72.829 Elevated white blood cell count, unspecified; I10 Essential (primary) hypertension; F17.210 Nicotine dependence, cigarettes, uncomplicated
CPT/HCPCS: 36415; 74177; 80053; 81003; 83690; 85025; 96365; 96375; 99284; J0696; J0744; J2405; J7030; Q9967

== ENCOUNTER 2022-07-19 06:01 | Emergency (ER) | payer SELFPAY ==
--- OUTSIDE RECORDS SUMMARY | 2022-07-19 06:04 | XMS REPORT | Continuity of Care Document ---
:1985 Author Organization [facility] t Address [address] [place] [address] Care Team Providers Name Role Phone Asked, [...] Clinician No Known DA Active [facility] 08[facility]09 [facility] Social History Social Habit Start Date Stop Date Quantity Comments Source History of Smokes tobacco Bahai tobacco use daily Hospital Tobacco use and 2021-01-17 2021-01-17 Smokeless tobacco Me [facility] exposure 00:00:00 00:00:00 non-user Hospital Alcohol intake 2021-01-17 2021-01-17 Current drinker [facility] 00:00:00 00:00:00 of alcohol Hospital (finding) Sex Assigned At [birth year] Bah[facility] 00:00:00 00:00:00 Hospital Smoking Status Start Date Stop Date Source Smokes tobacco daily 2021-01-17 00:00:00 [facility] Medications Ordered Filled Start Stop Current Ordering Indication Dosage Frequency Signature Comments Components Source Medication Medication Date Date Medication? Clinician (SIG) Name Name omeprazole Yes 20mg QD Take 1 Metho di (PriLOSEC) 01-[address] 20 MG 00:00: (20 mg Hospita capsule 00 total) by l mouth daily before breakfast. omeprazole Yes 20mg QD Take 1 Metho di (PriLOSEC) 7-[address] 20 MG 00:00: (20 mg Hospita capsule 00 total) by l mouth daily before breakfast. Procedures This patient has no known procedures. Plan of Care Planned Activity Planned Date Details Comments Source Future Scheduled 2022-06-22 Pneumococcal Vaccine: [facility] Test 21:58:37 Pediatrics (0 to 5 Years) and At-Risk Patients (6 to 64 Years) (1 - PCV) [code = Pneumococcal Vaccine: Pediatrics (0 to 5 Years) and At-Risk Patients (6 to 64 Years) (1 - PCV)] Future Scheduled 2022-06-22 Hepatitis C screening [facility] Test 21:58:37 (procedure) [code = 179460171] Future Scheduled 2022-06-22 INFLUENZA VACCINE Method [facility] Test 21:58:37 [code = INFLUENZA VACCINE] Future Scheduled 2022-06-22 COVID-19 VACCINE (#1) [facility] Test 21:58:37 [code = COVID-19 VACCINE (#1)] Future Scheduled 2022-03-01 HEPATITIS B VACCINES [facility] Test 10:36:38 (1 of 3 - 3-dose series) [code = HEPATITIS B VACCINES (1 of 3 - 3-dose series)] Future Scheduled 2022-03-01 COVID-19 VACCINE (#1) [facility] Test 10:36:38 [code = COVID-19 VACCINE (#1)] Future Scheduled 2022-03-01 Pneumococcal Vaccine: [facility] Test 10:36:38 Pediatrics (0 to 5 Years) and At-Risk Patients (6 to 64 Years) (1 - PCV) [code = Pneumococcal Vaccine: Pediatrics (0 to 5 Years) and At-Risk Patients (6 to 64 Years) (1 - PCV)] Future Scheduled 2022-03-01 Hepatitis C screening [facility] Test 10:36:38 (procedure) [code = [id number]] Future Scheduled 2022-03-01 INFLUENZA VACCINE Method [facility] Test 10:36:38 [code = INFLUENZA VACCINE] Encounters Start End Encounter Admission Attending Care Care Encounter Source Date/Time Date/Time Type Type Clinicians Facility Department ID 2019-07-15 Inpatient [facility] [id number] [facility] 03:32:[address] [place] [address] 2021-01-17 2021-01-17 Emergency [facility], [facility] [id number] 00:00:00 00:00:00 [facility] [address] Results Test Description Test Time Test Comments Results Result [facility] e Comments - CT C-SPINE W/O 2019-07-15 Name: ABIEL NICHOLSON CONT 04:19:00 Jostin [place] FSED : 1985 Age/S: 33 / M [address] Unit #: [id number] [place] [address] Phys: Heriberto Dickens MD Acct: [id number] Dis Date: Status: REG ER PHONE #: Exam Date: 07/15/2019 0408 FAX #: Reason: head trauma pain lac occipital EXAMS: CPT CODE: [id number] CT C-SPINE W/O CONT [id number] DICTATION LOCATION: H48 HISTORY: Male, 33 years [...] CTDI: 8.36 DLP: 194.18 Trnscb Date/Time: 07/15/2019 (418) Malcolm Orig Print D/T: S: 07/15/2019 (2116) PAGE 1 Signed Report - CT HEAD/BRAIN 2019-07-15 Name: ABIEL NICHOLSON W/O CONT 04:16:00 Jostin Skaggs FSED : 1985 Age/S: 33 / M [address] Unit #: [id number] Loc: [place] [address] Phys: Heriberto Dickens MD Acct: [id number] Dis Date: Status: REG ER PHONE #: Exam Date: 07/15/2019 0408 FAX #: Reason: head trauma pain lac occipital EXAMS: CPT CODE: [id number] CT HEAD/BRAIN W/O CONT [id number] DICTATION LOCATION: H48 HISTORY: Male, 33 years [...] 35.51 DLP: 588.54 Trnscb Date/Time: 07/15/2019 (0416) Malcolm Orig Print D/T: S: 07/15/2019 (0411) PAGE 1 Signed Report
[2022-07-19] MEDS ORDERED: LIDOCAINE VISCOUS 2% SOLN 15 ML UDC ONE (06:19)
[2022-07-19] MEDS ORDERED: METOPROLOL TAR 50 MG TAB ONE (06:19)
[2022-07-19] MEDS ORDERED: MAGNES/ALUMIN/SIMET 30ML UCUP ONE (06:19)
[2022-07-19 06:33] LABS: Absolute Lymphocytes (CBC) 3.3 K/uL (0.7-4.9); Hematocrit 43.6 % (39.6-49.0); Lymphocytes % 38.3 % (15.3-44.8); MPV 8.4 fL (7.6-11.3); RBC Red Blood Cell Count 5.25 M/uL (4.33-5.43)
[2022-07-19 06:58] LABS: Bilirubin Total 0.3 mg/dL (0.2-1.0); Troponin High Sensitivity 5.9 pg/mL (<58.9)
[2022-07-19 07:00] LABS: Potassium 3.5 mmol/L (3.5-5.1)
--- NOTE | 2022-07-19 08:41 | RAD REPORT ---
EXAM DESCRIPTION: US - Abdomen Exam Limited - 07/19/2022 8:16 am CLINICAL HISTORY: ABD PAIN COMPARISON: Abdomen Pelvis W Contrast dated 11/20/2019No comparisons FINDINGS: The gallbladder demonstrates significant contraction. No gross stone visible. No perichole cystic fluid or gallbladder wall thickening. The common bile duct is normal measuring 3 mm. The liver demonstrates no findings of intrahepatic biliary dilatation. IMPRESSION: Significant gallbladder contraction seen. This limits the examination. No gross stones seen.
--- NOTE | 2022-07-19 08:42 | RAD REPORT ---
EXAM DESCRIPTION: RAD - Chest Single View - 07/19/2022 6:46 am CLINICAL HISTORY: SOB Chest pain. COMPARISON: No comparisons FINDINGS: Portable technique limits examination quality. Mild bilateral interstitial lung opacities, greater on the right. This may represent viral infection or pulmonary edema. The heart is normal in size. No displaced fractures.
--- NOTE | 2022-07-19 08:50 | ER ---
Nurse's Notes [facility] Name: Giles Moses Jr Age: 36 yrs Sex: Male : 1985 Arrival Date: 07/19/2022 Time: 06:04 Bed 20 Private MD: Diagnosis: Gastro-esophageal reflux disease without esophagitis;Pneumonia in diseases classified elsewhere Presentation: 07/19 06:10 Chief complaint: EMS states: called out to pt stating ,"I woke up with my chest burning aa9 and I vomited, I am having difficulty breathing." Pt uncooperative en route, removing VS equipment. Coronavirus screen: Vaccine status: Patient reports receiving the 1st dose of the Covid vaccine. Ebola Screen: No symptoms or risks identified at this time. Initial Sepsis Screen: Does the patient meet any 2 criteria? No. Patient's initial sepsis screen is negative. Does the patient have a suspected source of infection? No. Patient's initial sepsis screen is negative. Risk Assessment: Do you want to hurt yourself or someone else? Patient reports no desire to harm self or others. Onset of symptoms was July 19, 2022. 06:10 Method Of Arrival: EMS: [facility] aa9 06:10 Acuity: BRENDA 3 aa9 Triage Assessment: 06:13 General: Appears uncomfortable, obese, Behavior is anxious. Pain: Complains of pain in aa9 chest Quality of pain is described as burning. Neuro: Level of Consciousness is awake, alert, obeys commands, Oriented to person, place, time, situation. Cardiovascular: Patient's skin is warm and dry. Rhythm is sinus tachycardia. Respiratory: Airway is patent Respiratory effort is even, unlabored. GI: Reports vomiting, Patient currently denies diarrhea. : No signs and/or symptoms were reported regarding the genitourinary system. Derm: Skin is intact, is healthy with good turgor. Historical: - Allergies: 06:12 No Known Allergies; aa9 - Home Meds: 06:12 metoprolol tartrate 50 mg Oral tab 1 tab 2 times per day [Active]; aa9 - PMHx: 06:12 Hypertensive disorder; aa9 - PSHx: 06:12 None; aa9 - Immunization history:: Client reports receiving the 1st dose of the Covid vaccine. - Social history:: Smoking status: Patient reports the use of cigarette tobacco products. Screenin:14 Abuse screen: Denies threats or abuse. Denies injuries from another. Nutritional aa9 screening: Has had N/V for 3 or more days. Tuberculosis screening: No symptoms or risk factors identified. 09:08 [facility] ED Fall Risk Assessment (Adult) History of falling in the last 3 months, kr3 including since admission No falls in past 3 months (0 pts) Confusion or Disorientation No (0 pts) Intoxicated or Sedated No (0 pts) Impaired Gait No (0 pts) Mobility Assist Device Used No (0 pt) Altered Elimination No (0 pt) Score/Fall Risk Level 0 - 2 = Low Risk Oriented to surroundings, Maintained a safe environment, Educated pt \\T\\ family on fall prevention, incl call for assistance when getting out of bed, Hourly rounding (assess needs \\T\\ fall precautionary measures) done. Assessment: 06:27 General: Appears uncomfortable, Behavior is cooperative, anxious. General: Smells of aa9 alcohol, pt reports drinking beer and hypnotic until 4 AM today. Neuro: Level of Consciousness is awake, alert, obeys commands, Oriented to person, place, time, situation. Respiratory: Airway is patent Respiratory effort is even, unlabored. 06:47 Reassessment: Patient appears in no apparent distress at this time. Patient and/or aa9 family updated on plan of care and expected duration. Pain level reassessed. Patient is alert, oriented x 3, equal unlabored respirations, skin warm/dry/pink. Patient states symptoms have improved. 07:20 Reassessment: patient laying left lateral with eyes closed, appears to be sleeping. kr3 General: Appears in no apparent distress. comfortable, Behavior is calm, cooperative, quiet. Neuro:. Cardiovascular: Patient's skin is warm and dry. Respiratory: Airway is patent Respiratory effort is even, unlabored, Respiratory pattern is regular, symmetrical. 08:25 Reassessment: Patient appears in no apparent distress at this time. Patient and/or kr3 family updated on plan of care and expected duration. Pain level reassessed. Patient is alert, oriented x 3, equal unlabored respirations, skin warm/dry/pink. Vital Signs: 06:10 BP 152 / 110; Pulse 119; Resp 18 S; Pulse Ox 97% on R/A; Weight 92.99 kg (R); Height 5 aa9 ft. 6 in. (167.64 cm) (R); 06:28 Pulse 110; Resp 17 S; Pulse Ox 98% on R/A; aa9 06:44 BP 153 / 98; Pulse 109; Resp 20; Pulse Ox 95% on R/A; aa9 07:46 BP 148 / 88; Pulse 98; Resp 18; Pulse Ox 97% on R/A; kr3 09:07 BP 121 / 89; Pulse 89; Resp 18; Pulse Ox 98% on R/A; kr3 06:10 Body Mass Index 33.09 (92.99 kg, 167.64 cm) aa9 ED Course: 06:04 Patient arrived in ED. wm 06:09 Mely Kramer MD is Attending Physician. sd2 06:10 Linn Waite, RN is Primary Nurse. aa9 06:12 Triage completed. aa9 06:14 Arm band placed on. aa9 06:24 Inserted saline lock: 20 gauge in right antecubital area, using aseptic technique. aa9 Blood collected. 06:27 Lipase Sent. aa9 06:27 CBC with Diff Sent. aa9 06:27 Troponin High Sensitivity Sent. aa9 06:27 CMP Sent. aa9 06:27 BNP Sent. aa9 06:28 No provider procedures requiring assistance completed. aa9 06:48 XRAY Chest (1 view) In Process Unspecified. EDMS 07:11 Attending Physician role handed off by Mely Kramer MD rn 07:11 Jad Dykes MD is Attending Physician. rn 08:18 US Abdomen Limited In Process Unspecified. EDMS 09:08 IV discontinued, intact, bleeding controlled, No redness/swelling at site. Pressure kr3 dressing applied. 09:10 Bed in low position. Call light in reach. Side rails up X 1. kr3 Administered Medications: 06:26 Drug: Metoprolol TARTRATE 50 mg Route: PO; aa9 09:32 Follow up: Response: No adverse reaction kr3 06:27 Drug: GI Cocktail without - (Maalox Suspension 30 ml, Lidocaine Liquid 2 % 15 aa9 ml) Route: PO; 06:43 Follow up: Response: No adverse reaction aa9 Medication: 06:28 VIS not applicable for this client. aa9 Outcome: 08:50 Discharge ordered by . rn 09:08 Discharged to home ambulatory. kr3 09:08 Condition: stable 09:08 Discharge instructions given to patient, Instructed on discharge instructions, follow up and referral plans. medication usage, Demonstrated understanding of instructions, follow-up care, medications, Prescriptions given X 2. 09:10 Patient left the ED. kr3 Signatures: Dispatcher [employer] EDMS Jad Dykes MD MD rn Marsh, Wendy wm Dunlop, Stephanie, MD MD al2 Linn Waite, RN RN aa9 Irlanda Plasencia RN RN kr3
--- NOTE | 2022-07-19 08:51 | EDPHYS ---
Physician Documentation [facility] Name: Giles Moses Jr Age: 36 yrs Sex: Male : 1985 Arrival Date: 07/19/2022 Time: 06:04 Bed 20 Private MD: ED Physician Jad Dykes HPI: 07/19 06:13 This 36 yrs old Male presents to ER via EMS with complaints of SOB. 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 Reports eating spicy food last night before going to bed and does have a history of reflux issues which he is not on medication for. Denies any difficulty swallowing but also endorses burning sensation radiating down into his chest. Reports one episode of vomiting this AM as well. Reports he cannot recall whether the burning pain or the vomiting episode came first. Denies abdominal pain, diarrhea. . Historical: - Allergies: 06:12 No Known Allergies; aa9 - Home Meds: 06:12 metoprolol tartrate 50 mg Oral tab 1 tab 2 times per day [Active]; aa9 - PMHx: 06:12 Hypertensive disorder; aa9 - PSHx: 06:12 None; aa9 - Immunization history:: Client reports receiving the 1st dose of the Covid vaccine. - Social history:: Smoking status: Patient reports the use of cigarette tobacco products. ROS: 06:13 Constitutional: Negative for fever, chills, and weight loss, Eyes: Negative for injury, sd2 pain, redness, and discharge, ENT: Negative for injury and discharge, Positive for pain Neck: Negative for injury, pain, and swelling, Cardiovascular: Negative for chest pain, palpitations, and edema, Respiratory: Negative for shortness of breath, cough, wheezing. Abdomen/GI: Negative for abdominal pain, nausea, vomiting, diarrhea. Back: Negative for injury and pain, : Negative for dysuria, frequency or hematuria. MS/Extremity: Negative for injury and deformity, Skin: Negative for injury, rash, and discoloration, Neuro: Negative for headache, numbness and tingling. Exam: 06:13 Constitutional: This is a well developed, well nourished patient who is awake, alert, sd2 and in no acute distress. Head/Face: Normocephalic, atraumatic. Eyes: EOMI, normal conjunctiva bilaterally ENT: Nares patent. No nasal discharge, no septal abnormalities noted. Oropharynx with no redness, swelling, or masses, exudates, or evidence of obstruction, uvula midline. Mucous membranes moist. Neck: Trachea midline, no thyromegaly or masses palpated, and no cervical lymphadenopathy. Supple, full range of motion without nuchal rigidity, or vertebral point tenderness. No Meningismus. No stridor. Chest/axilla: Normal chest wall appearance and motion. Nontender with no deformity. Cardiovascular: Regular rate and rhythm with a normal S1 and S2. No gallops, murmurs, or rubs. 2+ distal pulses. Respiratory: Lungs have equal breath sounds bilaterally, clear to auscultation and percussion. No rales, rhonchi or wheezes noted. No increased work of breathing, no retractions or nasal flaring. Abdomen/GI: Soft, non-tender, with normal bowel sounds. No guarding or rebound. No evidence of tenderness throughout. Skin: Warm, dry with normal turgor. Normal color with no rashes, no lesions, and no evidence of cellulitis. MS/ Extremity: Pulses equal, no cyanosis. Neurovascular intact. Full, normal range of motion. Ambulatory without difficulty. Psych: Awake, alert, with orientation to person, place and time. Behavior, mood, and affect are within normal limits. 06:13 ECG was reviewed by the Attending Physician. Sinus tachycardia, rate 118, no STEMI criteria Vital Signs: 06:10 BP 152 / 110; Pulse 119; Resp 18 S; Pulse Ox 97% on R/A; Weight 92.99 kg (R); Height 5 aa9 ft. 6 in. (167.64 cm) (R); 06:28 Pulse 110; Resp 17 S; Pulse Ox 98% on R/A; aa9 06:44 BP 153 / 98; Pulse 109; Resp 20; Pulse Ox 95% on R/A; aa9 07:46 BP 148 / 88; Pulse 98; Resp 18; Pulse Ox 97% on R/A; kr3 09:07 BP 121 / 89; Pulse 89; Resp 18; Pulse Ox 98% on R/A; kr3 06:10 Body Mass Index 33.09 (92.99 kg, 167.64 cm) aa9 MDM: 06:09 Patient medically screened. sd2 06:13 Differential Diagnosis Differential diagnosis includes but is not limited to: ACS, sd2 DVT/PE, pneumothorax, dissection, musculoskeletal, anxiety, anemia, electrolyte abnormality, pneumonia, CHF, COPD, gastritis, reflux among others. Data reviewed: vital signs, nurses notes, EMS record. 08:04 Differential Diagnosis. rn 08:48 Test interpretation: by ED physician or midlevel provider: plain radiologic studies, rn Independent interpretation of CXR: interstitial prominence, possible infection. Counseling: I had a detailed discussion with the patient and/or guardian regarding: the historical points, exam findings, and any diagnostic results supporting the discharge/admit diagnosis, lab results, radiology results, the need for outpatient follow up, to return to the emergency department if symptoms worsen or persist or if there are any questions or concerns that arise at home. Response to treatment: the patient's symptoms have markedly improved after treatment, the patient's condition has returned to base line, the patient is now symptom free, and as a result, I will discharge patient. Special discussion: I discussed with the patient/guardian in detail that at this point there is no indication for admission to the hospital. It is understood, however, that if the symptoms persist or worsen the patient needs to return immediately for re-evaluation. ED course: Pt with pain resolved after GI cocktail. CXR shows interstitial prominence, could be viral vs atypical pneumonia, no oxygen requirement, will dc home with antacids and abx.. 07/19 06:09 Order name: CBC with Diff; Complete Time: 07:16 sd2 07/19 06:09 Order name: CMP; Complete Time: 07:16 sd2 07/19 06:09 Order name: Lipase; Complete Time: 07:16 sd2 07/19 06:09 Order name: Troponin High Sensitivity; Complete Time: 07:16 sd2 07/19 06:09 Order name: BNP; Complete Time: 07:16 sd2 07/19 06:09 Order name: XRAY Chest (1 view); Complete Time: 08:48 sd2 07/19 06:09 Order name: EKG - Nurse/Tech; Complete Time: 06:14 sd2 07/19 07:17 Order name: US Abdomen Limited; Complete Time: 08:48 rn Administered Medications: 06:26 Drug: Metoprolol TARTRATE 50 mg Route: PO; aa9 09:32 Follow up: Response: No adverse reaction kr3 06:27 Drug: GI Cocktail without - (Maalox Suspension 30 ml, Lidocaine Liquid 2 % 15 aa9 ml) Route: PO; 06:43 Follow up: Response: No adverse reaction aa9 Disposition Summary: 07/19/22 08:50 Discharge Ordered Location: Home rn Problem: new rn Symptoms: have improved rn Condition: Stable rn Diagnosis - Gastro-esophageal reflux disease without esophagitis rn - Pneumonia in diseases classified elsewhere rn Followup: rn - With: Private Physician - When: As needed - Reason: Recheck today's complaints, Re-evaluation by your physician Discharge Instructions: - Discharge Summary Sheet rn - Gastroesophageal Reflux Disease, Adult rn - Community-Acquired Pneumonia, Adult rn Forms: - Medication Reconciliation Form rn - Thank You Letter rn - 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 Day 2, 3, 4 , 5 take one (1) tablet once daily.; 6 tablet; Refills: 0, Product Selection Permitted Signatures: Dispatcher [employer] Jad Adams MD MD rn Dunlop, Stephanie, MD MD sd2 Linn Waite RN RN aa9 Irlanda Plasencia RN kr3
[2022-07-19 09:36] VITALS: BP 121/89; O2SAT 98
--- NOTE | 2022-07-20 16:29 | EKG ---
Test Date: 2022-07-19 Test Time: 06:09:17 [address] [employer] Rep[employer] Supervisor: CHUY MEASUREMENT RESULTS: Intervals: Rate: 118 MN: 136 QRSD: 84 QT: 330 QTc: 462 [place]: P: 44 MN: 136 QRS: 58 T: 26 INTERPRETIVE STATEMENTS: Sinus tachycardia Otherwise normal ECG No previous ECG available for comparison Electronically Signed On 07-20-22 16:27:08 CHALK TESTER by Prieto Starr
== END 2022-07-19 09:10 | disposition home or self-care (01) ==
LOC: ER 06:01
DX: K21.9 Gastro-esophageal reflux disease without esophagitis (principal); J18.9 Pneumonia, unspecified organism
CPT/HCPCS: 36415; 71045; 76705; 80053; 83690; 83880; 84484; 85025; 93005; 99284

== ENCOUNTER 2024-12-01 12:10 | Emergency (ER) | payer SELFPAY ==
[2024-12-01] MEDS ORDERED: DIPHENHYDRAMINE 50 MG/ML VIAL ONE (12:20)
[2024-12-01 12:40] LABS: Absolute Eosinophils 0.1 K/uL (0-0.5); Absolute Lymphocytes (CBC) 1.5 K/uL (0.7-4.9); Absolute Monocytes 0.5 K/uL (0.1-1.3); Absolute Neutrophil 4.7 K/uL (1.8-8.0); Basophils % 0.6 % (0-1.3); Eosinophils % 0.8 % (0-4.4); Hemoglobin 16.4 g/dL (13.6-17.9); MCH 29.4 pg (27.0-35.0); MCHC 35.6 g/dL (32.0-36.0); MCV 82.5 fL (80-100); MPV 9.1 fL (7.6-11.3); Monocytes % 6.7 % (3.3-12.3); Neutrophils % 69.9 % (41.7-73.7); Nucleated Red Blood Cells % 0.1 % (0-0); Platelets 260 thou/uL (152-406); RBC Red Blood Cell Count 5.57 M/uL (4.33-5.43); Red Cell Distribution Width 13.6 % (12.1-15.2)
--- NOTE | 2024-12-01 12:44 | RAD REPORT ---
EXAMINATION: ONE VIEW CHEST XR CLINICAL INDICATION: CHEST PAIN TECHNIQUE: Frontal chest projection is submitted. Examination is limited by patient positioning and t echnique. COMPARISON: 07/19/2022 FINDINGS: The lungs are well inflated and clear. The heart is upper limit of normal in size. No displaced fract ures identified. IMPRESSION: No acute intrathoracic abnormalities.
[2024-12-01 13:00] LABS: Anion Gap 9.6 mEq/L (5.0-15.0); Magnesium 2.3 mg/dL (1.6-2.4); Potassium 3.6 mEq/L (3.5-5.1); Troponin High Sensitivity 4.2 pg/mL (<58.9)
--- NOTE | 2024-12-01 13:40 | ER ---
Nurse's Notes [facility] Name: Giles Moses Jr Age: 39 yrs Sex: Male : 1985 Arrival Date: 12/01/2024 Time: 12:08 Bed 3 Private MD: Diagnosis: Chest pain, unspecified;Essential (primary) hypertension Presentation: 12/01 12:16 Chief complaint: EMS states: they were toned out for CP, dizziness, and blurry vision. kc6 upon arrival pts SBP was 220. pt reports he has not taken his Metoprolol x2 days. Coronavirus screen: At this time, the client does not indicate any symptoms associated with coronavirus-19. Ebola Screen: No symptoms or risks identified at this time. Initial Sepsis Screen: Does the patient meet any 2 criteria? HR > 90 bpm. Does the patient have a suspected source of infection? No. Patient's initial sepsis screen is negative. Risk Assessment: Do you want to hurt yourself or someone else? Patient reports no desire to harm self or others. Onset of symptoms was December 01, 2024. Care prior to arrival: Medication(s) given: ASA, 81 mg, x 4, Labetalol 15mg IV IV initiated. 18 GA, in the right antecubital area. 12:16 Method Of Arrival: EMS: [facility] 12:16 Acuity: BRENDA 3 kc6 Historical: - Allergies: 12:18 No Known Allergies; kc6 - PMHx: 12:18 Hypertensive disorder; kc6 - PSHx: 12:18 None; kc6 - Immunization history:: Adult Immunizations up to date. - Infectious Disease History:: Denies. - Social history:: Smoking status: Patient/guardian denies using tobacco, but has a distant history of tobacco abuse. Screenin:35 [facility] ED Fall Risk Assessment (Adult) History of falling in the last 3 months, kc6 including since admission No falls in past 3 months (0 pts) Confusion or Disorientation No (0 pts) Intoxicated or Sedated No (0 pts) Impaired Gait No (0 pts) Mobility Assist Device Used No (0 pt) Altered Elimination No (0 pt) Score/Fall Risk Level 0 - 2 = Low Risk Oriented to surroundings. Abuse screen: Denies threats or abuse. Denies injuries from another. Nutritional screening: No deficits noted. Tuberculosis screening: No symptoms or risk factors identified. Assessment: 12:39 General: Appears in no apparent distress. comfortable, well groomed, well developed, kc6 Behavior is cooperative, appropriate for age, anxious. Pain: Complains of pain in chest Pain does not radiate. Pain began suddenly. Neuro: Level of Consciousness is awake, alert, obeys commands, Oriented to person, place, time, situation, Appropriate for age Reports blurred vision dizziness. Cardiovascular: Reports chest pain, Heart tones S1 S2 present Capillary refill < 3 seconds Rhythm is sinus rhythm. Respiratory: Airway is patent Trachea midline Respiratory effort is even, unlabored, Respiratory pattern is regular, symmetrical. GI: No signs and/or symptoms were reported involving the gastrointestinal system. : No signs and/or symptoms were reported regarding the genitourinary system. EENT: No signs and/or symptoms were reported regarding the EENT system. Derm: Skin is intact, is healthy with good turgor, Skin is pink, warm \T\ dry. Rash noted that is itchy, red, on left arm. Musculoskeletal: No signs and/or symptoms reported regarding the musculoskeletal system. Circulation, motion, and sensation intact. Range of motion: intact in all extremities. Vital Signs: 12:16 BP 182 / 124; Pulse 95; Resp 18 S; Pulse Ox 100% on R/A; Weight 95.25 kg (R); Height 5 kc6 ft. 5 in. (R); 12:40 BP 183 / 111; Pulse 92; Resp 17 S; Pulse Ox 95% on R/A; kc6 12:59 BP 160 / 115; kc6 13:20 BP 150 / 110; kc6 13:49 BP 148 / 87; Pulse 78; Resp 16; Pulse Ox 98% on R/A; iw 12:16 Body Mass Index 34.95 (95.25 kg, 165.1 cm) kc6 ED Course: 12:08 Patient arrived in ED. eb 12:08 George Nair DO is Attending Physician. ms3 12:16 Flaca Issa, ANUSHA is Primary Nurse. kc6 12:18 Triage completed. kc6 12:18 Arm band placed on. kc6 12:18 Patient has correct armband on for positive identification. Bed in low position. Call [facility] light in reach. Side rails up X 1. 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 Pulse ox on. NIBP on. Door closed. Noise minimized. Lights dimmed. Pillow given. Verbal reassurance given. 12:18 Maintain EMS IV. Dressing intact. Good blood return noted. Site clean \T\ dry. Gauge \T\ ezra 6 site: 18G RAC. Flushed with 10 mL NS. Patient maintains SpO2 saturation greater than 95% on room air. 12:35 Initial lab(s) drawn, by me, sent to lab. EKG done, by ED staff, reviewed by George Nair DO. 12:42 XRAY Chest (1 view) In Process Unspecified. EDMS 13:39 Prieto Starr MD is Referral Physician. ms3 13:50 No provider procedures requiring assistance completed. IV discontinued, intact, iw bleeding controlled, No redness/swelling at site. Pressure dressing applied. Administered Medications: 12:35 Drug: diphenhydrAMINE IVP 25 mg IVP once Route: IVP; Site: right antecubital; kc6 13:20 Follow up: Response: No adverse reaction kc6 Medication: 13:50 VIS not applicable for this client. iw Outcome: 13:39 Discharge ordered by . ms3 13:50 Discharged to home ambulatory, iw 13:50 Condition: good 13:50 Discharge instructions given to patient, Instructed on discharge instructions, follow up and referral plans. Demonstrated understanding of instructions, follow-up care, 13:50 Patient left the ED. iw Signatures: Dispatcher [employer] Janay Ho RN RN iw Gena Fischer Marcus, DO DO ms3 Flaca Issa RN RN kc6 Corrections: (The following items were deleted from the chart) 12:40 12:39 Derm: No signs and/or symptoms reported regarding the dermatologic system. Skin kc6 is intact, is healthy with good turgor, Skin is pink, warm \T\ dry. kc6
--- NOTE | 2024-12-01 13:40 | EDPHYS ---
Physician Documentation [facility] Name: Giles Moses Jr Age: 39 yrs Sex: Male : 1985 Arrival Date: 12/01/2024 Time: 12:08 Bed 3 Private MD: ED Physician George Nair HPI: 12/01 12:19 This 39 yrs old Male presents to ER via EMS with complaints of Chest Pain, ms3 High Blood Pressure. 12:19 39-year-old male with past medical history of hypertension presents to the emergency vt3 department via [facility] from [facility]. Patient is complaining of chest pain, dizziness, blurry vision. EMS initial blood pressure 220/116. 15 mg of labetalol, 324 mg of aspirin were given en route. Patient states his symptoms have resolved at this time.. Historical: - Allergies: 12:18 No Known Allergies; kc6 - PMHx: 12:18 Hypertensive disorder; kc6 - PSHx: 12:18 None; kc6 - Immunization history:: Adult Immunizations up to date. - Infectious Disease History:: Denies. - Social history:: Smoking status: Patient/guardian denies using tobacco, but has a distant history of tobacco abuse. ROS: 12:19 Constitutional: Negative for fever, and chills. Respiratory: Negative for shortness of ms3 breath, cough, wheezing, and pleuritic chest pain, Abdomen/GI: Negative for abdominal pain, nausea, vomiting, diarrhea, and constipation, 12:19 MS/Extremity: Negative for injury and deformity, Skin: Negative for injury, rash, and discoloration, 12:19 Eyes: Positive for blurry vision, 12:19 Cardiovascular: Positive for chest pain, palpitations, Exam: 12:19 Constitutional: This is a well developed, well nourished patient who is awake, alert, ms3 and in no acute distress. Cardiovascular: Regular rate and rhythm with a normal S1 and S2. No gallops, murmurs, or rubs. Normal PMI, no JVD. No pulse deficits. Respiratory: Lungs have equal breath sounds bilaterally, clear to auscultation and percussion. No rales, rhonchi or wheezes noted. No increased work of breathing, no retractions or nasal flaring. Abdomen/GI: Soft, non-tender, with normal bowel sounds. No distension or tympany. No guarding or rebound. No evidence of tenderness throughout. Skin: Warm, dry with normal turgor. Normal color with no rashes, no lesions, and no evidence of cellulitis. MS/ Extremity: Pulses equal, no cyanosis. Neurovascular intact. Full, normal range of motion. 13:40 ECG was reviewed by the Attending Physician. ms3 Vital Signs: 12:16 BP 182 / 124; Pulse 95; Resp 18 S; Pulse Ox 100% on R/A; Weight 95.25 kg (R); Height 5 kc6 ft. 5 in. (R); 12:40 BP 183 / 111; Pulse 92; Resp 17 S; Pulse Ox 95% on R/A; kc6 12:59 BP 160 / 115; kc6 13:20 BP 150 / 110; kc6 13:49 BP 148 / 87; Pulse 78; Resp 16; Pulse Ox 98% on R/A; iw 12:16 Body Mass Index 34.95 (95.25 kg, 165.1 cm) kc6 MDM: 12:19 Medical Screening Exam initiated ms3 12:19 Differential diagnosis: abnormal EKG, acute myocardial infarction, Hypertensive urgency.ms3 14:15 HEART Score: History: Slightly Suspicious (0), ECG: Normal (0), Age: < or = 45 years ms3 (0), Risk Factors: 1 or 2 risk factors (1), Troponin: < or = 1 x Normal Limit (0), Total Score = 1. The patient was not given aspirin in the Emergency Department. Administered by EMS. Data reviewed: vital signs, nurses notes, lab test result(s), EKG, radiologic studies, and as a result, I will discharge patient. Consideration of Admission/Observation Escalation of care including admission/observation considered. Patient's blood pressure returned to baseline while in the emergency department. I considered the following discharge prescriptions or medication management in the emergency department Medications were administered in the Emergency Department. See MAR. Independent interpretation of the following test(s) in the Emergency Department EKG: See my EKG interpretation above. Historians other than the Patient: EMS: [facility]. Counseling: I had a detailed discussion with the patient and/or guardian regarding the historical points, exam findings, and any diagnostic results supporting the discharge/admit diagnosis, lab results, radiology results, the need for outpatient follow up, to return to the emergency department if symptoms worsen or persist or if there are any questions or concerns that arise at home. Special discussion: Based on the patient's history, exam, and Dx evaluation, there is no indication for emergent intervention or inpatient Tx. It is understood by the patient/guardian that if the Sx's persist or worsen they need to return immediately for re-evaluation. ED course: Discussed labs, EKG, and imaging with patient. Patient to follow-up with Dr. Starr in 2 to 3 days. Patient understands and agrees with plan. All questions were answered. Return precautions discussed include worsening symptoms, or any other concerns.. 12/01 12:09 Order name: Basic Metabolic Panel; Complete Time: 13:35 ms3 12/01 12:09 Order name: CBC with Diff; Complete Time: 13:35 ms3 12/01 12:09 Order name: Magnesium; Complete Time: 13:35 ms3 12/01 12:09 Order name: Troponin HS; Complete Time: 13:35 ms3 12/01 12:09 Order name: XRAY Chest (1 view); Complete Time: 13:35 ms3 12/01 12:09 Order name: EKG; Complete Time: 12:09 ms3 12/01 12:09 Order name: Cardiac monitoring; Complete Time: 12:19 ms3 12/01 12:09 Order name: EKG - Nurse/Tech; Complete Time: 12:34 ms3 12/01 12:09 Order name: IV Saline Lock; Complete Time: 12:19 ms3 12/01 12:09 Order name: Labs collected and sent; Complete Time: 12:34 ms3 12/01 12:09 Order name: O2 Per Protocol; Complete Time: 12:19 ms3 12/01 12:09 Order name: O2 Sat Monitoring; Complete Time: 12:19 ms3 EC:40 Rate is 84 beats/min. Rhythm is regular. QRS [place] is Normal. NE interval is normal. QRS ms3 interval is normal. Clinical impression: Normal ECG. Interpreted by me. Reviewed by me. Administered Medications: 12:35 Drug: diphenhydrAMINE IVP 25 mg IVP once Route: IVP; Site: right antecubital; kc6 13:20 Follow up: Response: No adverse reaction kc6 Disposition Summary: 12/01/24 13:39 Discharge Ordered Notes: Location: Home ms3 Condition: Stable ms3 Diagnosis - Chest pain, unspecified ms3 - Essential (primary) hypertension ms3 Followup: ms3 - With: Prieto Starr MD - When: 2 - 3 days - Reason: Recheck today's complaints Discharge Instructions: - Discharge Summary Sheet ms3 - Nonspecific Chest Pain, Adult ms3 - Hypertension, Adult ms3 Forms: - Medication Reconciliation Form ms3 - Antibiotic Education ms3 - Prescription Opioid Use ms3 - Patient Portal Instructions ms3 - Leadership Thank You Letter ms3 Signatures: Dispatcher [employer] George Fink DO DO ms3 Flaca Issa, RN RN kc6
--- NOTE | 2024-12-05 12:31 | EKG ---
Test Date: 2024-12-01 Test Time: 12:27:45 [employer]: SHANE MEASUREMENT RESULTS: Intervals: Rate: 84 MS: 136 QRSD: 98 QT: 366 QTc: 432 [place]: P: 44 MS: 136 QRS: 38 T: 42 INTERPRETIVE STATEMENTS: Normal sinus rhythm Normal ECG Compared to ECG 07/19/2022 06:09:17 Sinus tachycardia no longer present Electronically Signed On 12-05-24 12:24:03 CDT by Delvis Castillo
== END 2024-12-01 13:50 | disposition home or self-care (01) ==
LOC: ER 12:10
DX: R07.9 Chest pain, unspecified (principal); I10 Essential (primary) hypertension
CPT/HCPCS: 36415; 71045; 80048; 83735; 84484; 85025; 93005; 96374; 99285; J1200

== ENCOUNTER 2025-04-15 02:09 | Emergency (ER) | payer SELFPAY ==
--- NOTE | 2025-04-15 02:31 | ER ---
Nurse's Notes [facility] Name: Giles Moses Jr Age: 39 yrs Sex: Male : 1985 Arrival Date: 04/15/2025 Time: 02:09 Bed Waiting Private MD: Diagnosis: Presentation: 04/15 02:30 Chief complaint: Patient states: reports does not wish to be seen at this time due to kl having to wait. ED Course: 02:11 Patient arrived in ED. gm2 Administered Medications: No medications were administered Outcome: 02:31 Patient left the ED. Signatures: Cris Story RN RN Delphine Mitchell gm2
== END 2025-04-15 02:31 | disposition left against medical advice (07) ==
LOC: ER 02:09
DX: Z53.21 Procedure and treatment not carried out due to patient leaving prior to being seen by health care provider (principal)
CPT/HCPCS: 99281